=== PATIENT | female | born 1950 | race African-American/Black ===

== ENCOUNTER 2018-05-15 20:21 | Inpatient (IN) | payer OTHER ==
[~2018-05-15] VITALS: Ht 152.4 cm; Wt 52.0 kg
[2018-05-15 20:39] VITALS: Ht 152.4 cm; Wt 52.0 kg
[2018-05-15 21:55] LABS: BASOPHIL % 0.4 % (0-2); PLATELET COUNT 286 x10^3mcL (130-400); RED CELL DISTRIBUTION WIDTH 13.6 % (11.5-14.5)
[2018-05-15 22:38] LABS: CALCIUM 9.3 mg/dL (8.5-10.1); CARBON DIOXIDE 22.9 mmol/L (21-32); POTASSIUM SERUM 4.1 mmol/L (3.5-5.1)
[2018-05-15 22:50] LABS: ALBUMIN 3.8 g/dL (3.4-5.0); BILIRUBIN TOTAL 0.52 mg/dL (0.20-1.00); TOTAL PROTEIN, SERUM 6.9 g/dL (6.4-8.2)
[2018-05-15 22:55] LABS: MAGNESIUM 1.7 mg/dL (1.8-2.4); PHOSPHOROUS 1.3 mg/dL (2.5-4.9)
[2018-05-15 23:49] LABS: UA SPECIFIC GRAVITY 1.015 (1.005-1.035); microscopic required? YES; urine erythrocyte NEGATIVE (NEGATIVE)
[2018-05-16] VITALS (7 sets, daily range): BP systolic 120–134; BP diastolic 68–82
[2018-05-16 00:26] LABS: AMPHETAMINE QUAL UR NONE DETECTED (See below)
[2018-05-16 06:36] LABS: CALCIUM 8.1 mg/dL (8.5-10.1); CARBON DIOXIDE 24.9 mmol/L (21-32); CHLORIDE SERUM 107 mmol/L (98-107); CREATININE SERUM 0.9 mg/dL (0.6-1.0); GFR1 > 60 mL/min; GLUCOSE SERUM 159 mg/dL (74-106); MAGNESIUM 1.6 mg/dL (1.8-2.4); PHOSPHOROUS 2.1 mg/dL (2.5-4.9); POTASSIUM SERUM 3.4 mmol/L (3.5-5.1); SODIUM SERUM 144 mmol/L (136-145)
[2018-05-16 06:53] LABS: FREE T4 1.47 ng/dL (0.76-1.46); T4(THYROXINE) 11.5 ug/dL (4.7-13.3)
[2018-05-16 07:14] LABS: T3 TOTAL 0.99 ng/mL
[2018-05-16 07:22] LABS: BASOPHIL % 0.1 % (0-2); PLATELET COUNT 259 x10^3mcL (130-400); RED CELL DISTRIBUTION WIDTH 13.6 % (11.5-14.5)
[2018-05-16] MEDS ORDERED: ATORVASTATIN CA40 M1 PO (10:40)
[2018-05-16] MEDS ORDERED: CLOPIDOGREL75 M1 PO (10:40)
[2018-05-16] MEDS ORDERED: TOP50 PO (10:41)
[2018-05-16] MEDS ORDERED: ECO81 PO (10:43)
[2018-05-16] MEDS ORDERED: APAP/HYDROCODON1 T13 PO (10:44)
[2018-05-16] MEDS ORDERED: TYL325 PO (10:45)
[2018-05-16] MEDS ORDERED: ZOFI IV (10:47)
[2018-05-16] MEDS ORDERED: COL100 PO (10:47)
[2018-05-16] MEDS ORDERED: ATENOLOL25 MG PO (13:28)
[2018-05-17 04:54] VITALS: BP 117/58
[2018-05-17 07:05] LABS: BASOPHIL % 0.1 % (0-2); PLATELET COUNT 215 x10^3mcL (130-400); RED CELL DISTRIBUTION WIDTH 13.4 % (11.5-14.5)
[2018-05-17 07:11] LABS: CALCIUM 7.8 mg/dL (8.5-10.1); CARBON DIOXIDE 25.3 mmol/L (21-32); CHLORIDE SERUM 107 mmol/L (98-107); CREATININE SERUM 0.8 mg/dL (0.6-1.0); GFR1 > 60 mL/min; GLUCOSE SERUM 110 mg/dL (74-106); MAGNESIUM 2.2 mg/dL (1.8-2.4); POTASSIUM SERUM 3.2 mmol/L (3.5-5.1); SODIUM SERUM 141 mmol/L (136-145)
[2018-05-17 09:15] VITALS: BP 151/77
[2018-05-17 10:15] VITALS: BP 151/77
== END 2018-05-17 12:42 | disposition short-term general hospital (02) | DRG 280 ==
LOC: ED 20:21 → DU 23:04
PROVIDERS: Emergency Medicine; Family Medicine
DX: I21.4 Non-ST elevation (NSTEMI) myocardial infarction (principal); N17.0 Acute kidney failure with tubular necrosis; R80.9 Proteinuria, unspecified; E78.5 Hyperlipidemia, unspecified; E83.39 Other disorders of phosphorus metabolism; F12.10 Cannabis abuse, uncomplicated; I10 Essential (primary) hypertension; Z87.891 Personal history of nicotine dependence; Z90.710 Acquired absence of both cervix and uterus; I25.10 Atherosclerotic heart disease of native coronary artery without angina pectoris; E87.6 Hypokalemia; E83.42 Hypomagnesemia
CPT/HCPCS: 83880; 84439; J1644; J2405; J2765; J3475; J7030; Q0092